=== PATIENT | male | born 1990 | race Two or more races ===

== ENCOUNTER 2021-01-22 10:20 | Emergency (ER) | payer MEDICAID ==
[~2021-01-22] VITALS: Ht 167.6 cm; Wt 59.0 kg
[~2021-01-22 10:20] MED LIST: FAMO20TA8 PO; INSULIN LANTUS SQ; INSULIN REGULAR; ONDA4TAB5 PO
--- NOTE | 2021-01-22 11:21 | NUR ---
Pt in NAD at this time. Resting in semi-fowlers in the [facility]. VSS
[2021-01-22] MEDS ORDERED: diphenhydrAMINE 50 MG CAPSULE PO ONE (12:45)
[2021-01-22] MEDS ORDERED: predniSONE 10 MG TABLET PO ONE (12:45)
[2021-01-22] MEDS ORDERED: FAMOTIDINE 20 MG TABLET PO ONE (12:45)
[2021-01-22 12:53] LABS: HEMATOCRIT 40.6 % (36.7-47.1); MEAN CORPUSCULAR HEMOGLOBIN 28.6 uug (23.8-33.4); MEAN CORPUSCULAR VOLUME 84.8 fL (73.0-96.2); PLATELET COUNT (AUTO) 367 K/uL (152-348)
[2021-01-22] MEDS ORDERED: predniSONE 50 MG TABLET ONE (12:58)
[2021-01-22] MEDS ORDERED: FAMOTIDINE 20 MG TABLET ONE (12:58)
[2021-01-22] MEDS ORDERED: predniSONE 10 MG TABLET ONE (12:58)
[2021-01-22] MEDS ORDERED: diphenhydrAMINE 50 MG CAPSULE ONE (12:59)
[2021-01-22 13:06] LABS: ALANINE AMINOTRANSFERASE 56 U/L (16-63); ALKALINE PHOSPHATASE 170 U/L (50-136); ASPARTATE AMINOTRANSFERASE 46 U/L (15-37); BILIRUBIN,TOTAL 0.2 mg/dL (0.2-1.0); CARBON DIOXIDE 28 mmol/L (21-32); CHLORIDE 93 mmol/L (98-107); CREATININE 1.2 mg/dL (0.6-1.3); POTASSIUM 4.4 mmol/L (3.5-5.1); TOTAL PROTEIN, SERUM 6.9 g/dL (6.4-8.2); UREA NITROGEN, BLOOD 17 mg/dL (7-18)
[2021-01-22 13:07] LABS: BILIRUBIN,DIRECT < 0.1 mg/dL (0.0-0.2); GLUCOSE 667 mg/dL (74-106)
--- NOTE | 2021-01-22 13:14 | NUR ---
Provider responding to code blue. Will notify of critical glucose as soon as he becomes available. Pt in NAD at this time. Stable and responsive.
--- NOTE | 2021-01-22 13:25 | NUR ---
Provider notified of Critical glucose level.
--- NOTE | 2021-01-22 14:05 | NUR ---
Shelley hopkins in [facility] - 01/22/21 at 1405 by [employer] tray setup, ready for provider.
[2021-01-22] MEDS ORDERED: IV NS 1000 ML 1,000 ML IV ONE ×3 (14:15→21:30)
[2021-01-22] MEDS ORDERED: INSULIN REGULAR, HUMAN 300 UNIT/3 ML VIAL IV ONE (14:15)
[2021-01-22] MEDS ORDERED: LIDOCAINE HCL 1% 20 ML VIAL IJ ONE (14:15)
[2021-01-22] MEDS ORDERED: INSULIN REGULAR, HUMAN 300 UNIT/3 ML VIAL ONE (14:38)
[2021-01-22] MEDS ORDERED: INSULIN NPH 1,000 UNITS/10 ML VIAL SQ ONE (14:38)
[2021-01-22] MEDS ORDERED: IV NORMAL SALINE 1000 ML BAG IV ONE (14:40)
--- NOTE | 2021-01-22 14:40 | NUR ---
IV hydration at 125mL/hr along with administration of insulin IV, per provider order.
--- NOTE | 2021-01-22 15:45 | NUR ---
Pt resting, in stable condition, VSS. Responsive to stimuli.
--- NOTE | 2021-01-22 17:30 | NUR ---
Pt states beginning of [place]. Took a repeat POCT glucose. Notified provider of result.
[2021-01-22] MEDS ORDERED: KETOROLAC TROMETHAMINE 15 MG INJ IVP ONE (18:00)
[2021-01-22] MEDS ORDERED: KETOROLAC TROMETHAMINE 15 MG INJ ONE (18:02)
--- NOTE | 2021-01-22 19:21 | NUR ---
Hand-off report given to GLORIA Zimmer
--- NOTE | 2021-01-22 19:30 | NUR ---
Assumed care of patient from day shift nurse. Patient AAOx4. In no acute distress. Still complaining of mild headache. Eating dinner at this time.
[2021-01-22] MEDS ORDERED: INSULIN REGULAR, HUMAN 300 UNIT/3 ML VIAL SQ ONE (20:00)
[2021-01-22] MEDS ORDERED: INSULIN REGULAR, HUMAN 10 UNIT in IV NORMAL SALINE 100 ML IV ONE (20:00)
--- NOTE | 2021-01-23 00:36 | NUR ---
Pt requested for some water and given.
--- NOTE | 2021-01-23 02:38 | NUR ---
Patient discharged to home in stable condition. Written and verbal after care instructions given. Patient verbalizes understanding of instructions. Stressed follow up or return to ER for worsening s/s. Patient ambulated fr the ER with steady gait. All belongings with patient.
[2021-01-23 03:09] VITALS: BP 145/80
[2021-01-23 19:48] LABS: *CLARITY,URINE CLEAR (CLEAR); *COLOR,URINE LIGHT YELLOW (YELLOW)
[2021-01-23 19:50] LABS: *BILIRUBIN,URIN NEGATIVE (NEGATIVE); *BLOOD, URINE NEGATIVE (NEGATIVE); *KETONES,URINE NEGATIVE (NEGATIVE); *UROBILINOGEN,URINE 0.2 E.U./dl (NORMAL); LEUKOCYTE ESTERASE ,URINE NEGATIVE (NEGATIVE); NITRITE, URINE NEGATIVE (NEGATIVE); UGLUCOSE NEGATIVE (NEGATIVE)
== END 2021-01-23 02:38 | disposition home or self-care (01) ==
LOC: ER 10:20
DX: L29.9 Pruritus, unspecified (principal); E10.65 Type 1 diabetes mellitus with hyperglycemia; Z79.4 Long term (current) use of insulin; K21.9 Gastro-esophageal reflux disease without esophagitis; E88.09 Other disorders of plasma-protein metabolism, not elsewhere classified; R94.31 Abnormal electrocardiogram [ECG] [EKG]
CPT/HCPCS: 36415 ×2; 71045; 80048; 80076; 81003; 82009; 82962 ×5; 83605; 84484; 85025; 87040 ×2; 93005; 96361; 96372; 96374; 96375; 99285; J1815; J1885; J7512 ×2; Q0163; 70030-TC; A4663; J7030